=== PATIENT | female | born 1995 | race Caucasian/White ===

== ENCOUNTER 2016-11-08 01:22 | Emergency (ER) | payer OTHER ==
[~2016-11-08 01:22] MED LIST: NS 1,000 ML IV ONE
[2016-11-08 01:33] VITALS: RESP 16
[2016-11-08] MEDS ORDERED: HYDROmorphONE/DILAUDID 1 MG/ML SYR IVP PRN (01:38)
[2016-11-08] MEDS ORDERED: KETOROLAC 30 MG/1 ML SDV IVP ONE (01:38)
[2016-11-08] MEDS ORDERED: TDAP ADULT 0.5 ML INJ (BOOSTRIX) IM ONE (01:45)
--- NOTE | 2016-11-08 02:15 | EDPHY ---
H & P Stated Complaint: Right leg lac Time Seen by Provider: 11/08/16 01:30 HPI/ROS: HPI: The patient presents with right leg injury which occurred just prior to arrival. She is brought in by ambulance as limited trauma activation. Apparently, she had kicked a window, the glass broke, and cut her posterior right lower leg. She began to bleed heavily and 911 was called. She now reports 3/10 pain to her right leg which is dull and constant. She has some tingling of her foot but has sensation. REVIEW OF SYSTEMS Constitutional: No fever, no chills. Eyes: No discharge. ENT: No sore throat. Cardiovascular: No chest pain, no palpitations. Respiratory: No cough, no shortness of breath. Gastrointestinal: No abdominal pain, no vomiting. Genitourinary: No hematuria. Musculoskeletal: No back pain. Skin: No rashes. Neurological: No headache. 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 [employer] TRAUMA PHYSICAL General Appearance: Alert, no distress Head: Atraumatic Eyes: Pupils equal, round, reactive ENT, Mouth: no oral trauma Neck: Non- tender, trachea midline Respiratory: No chest wall tenderness, no subcutaneous air, lungs clear bilaterallty Cardiovascular: Regular rate and rhythm Abdomen: Abdomen is soft and non-tender, pelvis stable Skin: No lacerations, No abrasion Back: No midline T/L/S pain Extremities: Large gaping laceration at the distal 1/3 of her calf, there is no active bleeding, there appears to be complete laceration of the Achilles tendon, 2+ DP and PT pulses are present, she has full range of motion of her toes, sensation is intact to light touch in her foot Neurological: A&Ox3, GCS=15 Source: Patient, EMS - Personal History LMP (Females 10-55): 15-21 Days Ago Current Tetanus/Diphtheria Vaccine: Unsure Current Tetanus Diphtheria and Acellular Pertussis (TDAP): Unsure - Medical/Surgical History Hx Asthma: No Hx Chronic Respiratory Disease: No Hx Diabetes: No Hx Cardiac Disease: No Hx Renal Disease: No Hx Cirrhosis: No Hx Alcoholism: No Hx HIV/AIDS: No Hx Splenectomy or Spleen Trauma: No Other PMH: N/A - Social History Smoking Status: Never smoked Constitutional: Initial Vital Signs Heart Rate 91 11/08/16 01:31 Respiratory Rate 16 11/08/16 01:31 Blood Pressure 122/65 H 11/08/16 01:31 O2 Sat (%) 98 11/08/16 01:31 O2 Delivery Mode Room Air O2 (L/minute) 36.4 Allergies/Adverse Reactions: No Known Allergies Allergy (Unverified 11/08/16 01:31) Home Medications: Medication Instructions Recorded Cephalexin [Keflex (*)] 500 mg PO Q6H #28 cap 11/08/16 Medical Decision Making - Diagnostics Imaging: X-ray right leg two views shows soft tissue swelling, no foreign body, no bony injury, interpreted by me, radiology interpretation is pending. Procedures: DISTAL SCIATIC NERVE BLOCK The patient's distal sciatic nerve was located using ultrasound just proximal to the popliteal fossa. Using 5 mL of lidocaine 1% with epinephrine under sterile conditions, a skin wheal was made and then using a 23 gauge needle, anesthetic was placed just adjacent to the distal sciatic nerve. Patient tolerated the procedure well with no immediate complications. LACERATION REPAIR Procedure: Laceration repair. Verbal consent was obtained from the patient. The linear 12 cm laceration on the right posterior leg was anesthetized on the wound margins using lidocaine 1 % with epinephrine. The wound was scrubbed, draped and explored to its base with a gloved finger. She has an obvious Achilles tendon laceration and some oozing of blood without any arterial injury.. The wound was repaired with 3. 0 Prolene. The wound repair was simple. The procedure was performed by myself. SPLINT Procedure: Splint placement. A ortho glass posterior short leg with gravity equinus splint was applied to the right leg by the tech. After application of the splint I returned and re- examined the patient. The splint was adequately immobilizing the joint and distal to the splint the patient's circulation and sensation was intact. Differential Diagnosis: This is a healthy 20-year-old female who presents after an injury to her right lower leg. She put her leg through a glass window and sustained a large laceration. On exam, she has a large distal posterior leg laceration and appears to have injured her Achilles tendon which seems to be completely lacerated. She has strong DP and PT pulses without any active bleeding from the wound. She has sensation to light touch in her toes and has full range of motion of her toes. Range of motion of her ankle is limited secondary to pain and tendon injury. In the emergency room, the patient's pain was controlled with IV pain medication. X-ray was performed which showed no foreign body and no bony injury. Ultrasound guided distal sciatic nerve block was performed by myself for pain control. She was irrigated with copious saline. The case was discussed with the orthopedist leaf conditioner, Dr. Reji Tony. He recommends Ancef, wound closure, follow up with Orthopedics for definitive care. Wound was closed by me. The patient was placed in a posterior splint. She was instructed on how to use crutches. She will be discharged home with Keflex and pain medication. - Data Points Medications Given: Discontinued Medications Hydrocodone Bitart/Acetaminophen ([place] 5/325mg Prepack#6) 1 btl TAKEHOME EDNOW ONE Stop: 11/08/16 04:48 Last Admin: 11/08/16 04:48 Dose: 1 btl Diphtheria/Tetanus/Acell Pertussis (Boostrix) 0.5 ml IM .ONCE ONE Stop: 11/08/16 01:46 Last Admin: 11/08/16 01:50 Dose: 0.5 ml Hydromorphone HCl (Dilaudid) 1 mg IVP Q4 PRN PRN Reason: Pain, Severe Unable to Take PO Stop: 11/18/16 01:37 Last Admin: 11/08/16 01:51 Dose: 1 mg Cefazolin Sodium 1 gm/ Sodium (Chloride) 100 mls @ 400 mls/hr IV EDNOW ONE PRN Reason: Protocol Stop: 11/08/16 03:02 Last Admin: 11/08/16 03:05 Dose: 100 mls Sodium Chloride (Ns) 1,000 mls @ 0 mls/hr IV ONCE ONE PRN Reason: Wide Open Stop: 11/08/16 01:01 Last Admin: 11/08/16 01:22 Dose: 1,000 mls Ketorolac Tromethamine (Toradol) 15 mg IVP EDNOW ONE Stop: 11/08/16 01:39 Last Admin: 11/08/16 01:40 Dose: 15 mg Departure - Departure Disposition: Home, Routine, Self-Care Clinical Impression: Lower leg laceration involving tendon, Laceration of right Achilles tendon, initial encounter Condition: Good Instructions: Hydrocodone/Acetaminophen (By mouth), Achilles Tendon Rupture (ED ), Splint Care (ED) Additional Instructions: With your injury, you have cut the Achilles tendon. This will require a repair by Orthopedics. I have given you the information for Dr. Reji Tony at [facility]. You should call their office in the morning to schedule an appointment to be seen. Please keep the splint on at all times. You should use crutches and not put any weight on her foot. Monitor the wound for any signs of infection such as redness, swelling, drainage. Please return to the emergency room if your feeling worse in any way. Today we performed an nerve block which helps to relieve pain in the leg. Your leg will feel slightly numb for the next 1 day, however after that you should not have any continued numbness. If you do, you should return to the emergency room for evaluation. Referrals: Reji Tony MD [Medical Doctor] - As per Instructions Prescriptions: Cephalexin [Keflex (*)] 500 mg PO Q6H #28 cap
[2016-11-08] MEDS ORDERED: ceFAZolin 1 GM in NS 100 ML IV ONE (02:48)
[2016-11-08] MEDS ORDERED: HYDROCOD/APAP 5/325 PREPACK#6 BTL TAKEHOME ONE ×2 (04:37→04:47)
[2016-11-08 04:54] VITALS: BP 120/57; PULSE 108; TEMP 98.6; O2SAT 97
== END 2016-11-08 04:40 | disposition home or self-care (01) ==
PROC: 0HQKXZZ Repair Right Lower Leg Skin, External Approach (ICD-10-PCS; principal; 2016-11-08)
DX: S86.021A Laceration of right Achilles tendon, initial encounter (principal); Z23 Encounter for immunization; W22.8XXA Striking against or struck by other objects, initial encounter
CPT/HCPCS: 96374; J0690; J1170; J1885; L4386